=== PATIENT | male | born 1975 | race Caucasian/White ===

== ENCOUNTER 2018-11-06 16:34 | Emergency (ER) | payer MEDICAID ==
[~2018-11-06] VITALS: Ht 182.9 cm; Wt 88.5 kg
--- NOTE | 2018-11-06 17:05 | NUR ---
ED Nurse Note: Patient walked into ED c/o rash or abscess on his face, and rash/itchiness all over his body, patient also reports right hip pain
[2018-11-06 17:41] VITALS: BP 131/90
--- NOTE | 2018-11-06 17:49 | Emergency Room Report ---
History of Present Illness General Chief Complaint: Skin Rash/Abscess Source: Patient Present Illness HPI 43-year-old male presents to the emergency department complaining of 10 out of 10 in severity itchy rash to the face 1 week in addition to now feeling itchiness throughout his body. Patient reports that he has been living in incisional housing areas. Patient denies erythema, fevers or chills. Patient reports several open wounds. He states that he is up-to-date with vaccinations and that he recently received his tetanus vaccination. Patient denies history of immunocompromise. Pt. denies swollen tender lymph nodes. Denies new medications or body washes or creams. Denies swelling of the lips, tongue , throat or airway. Denies wheezing, or shortness of breath. Denies recent travel , recent illness or ill contacts. denies blisters, oral lesions, or sloughing of the skin. Pt. requesting scabies treatment as well. Allergies: Coded Allergies: PENICILLINS (Verified Allergy, Unknown, 11/06/18) Patient History Past Medical History: see triage record Past Surgical History: none Pertinent Family History: none Immunizations: UTD Reviewed Nursing Documentation: PMH: Agreed; PSxH: Agreed Nursing Documentation-PMH Past Medical History: No Stated History Review of Systems All Other Systems: negative except mentioned in HPI Physical Exam Vital Signs Date Time Temp Pulse Resp B/P (MAP) Pulse Ox O2 Delivery O2 Flow Rate FiO2 11/06/18 16:58 98.1 92 19 131/90 98 Room Air Sp02 EP Interpretation: reviewed, normal General Appearance: no apparent distress, alert, GCS 15, non-toxic Head: normocephalic, atraumatic Eyes: bilateral eye normal inspection, bilateral eye PERRL ENT: hearing grossly normal, no angioedema, normal voice, other - nummular plaques in the [place] area, scabbing noted, no erythema, blisters or vessicles Neck: full range of motion Respiratory: chest non-tender, lungs clear, normal breath sounds, no wheezing, speaking full sentences Cardiovascular #1: regular rate, rhythm Musculoskeletal: back normal, gait/station normal, normal range of motion, non- tender Neurologic: alert, oriented x3, responsive, motor strength/tone normal, sensory intact, normal gait, speech normal, grossly normal Psychiatric: judgement/insight normal Skin: normal color, warm/dry, well hydrated, rash Lymphatic: no adenopathy Medical Decision Making PA Attestation Dr. meyers is my supervising Physician whom patient management has been discussed with. Diagnostic Impression: Primary Impression: Rash and other nonspecific skin eruption ER Course 43-year-old male presents to the emergency department complaining of 10 out of 10 in severity itchy rash to the face 1 week in addition to now feeling itchiness throughout his body. Patient reports that he has been living in incisional housing areas. Patient denies erythema, fevers or chills. Patient reports several open wounds. He states that he is up-to-date with vaccinations and that he recently received his tetanus vaccination. Patient denies history of immunocompromise. Pt. denies swollen tender lymph nodes. Denies new medications or body washes or creams. Denies swelling of the lips, tongue , throat or airway. Denies wheezing, or shortness of breath. Denies recent travel , recent illness or ill contacts. denies blisters, oral lesions, or sloughing of the skin. Pt. requesting scabies treatment as well. Ddx considered but are not limited to cellulitis, scabies, shingles, varicella, dermatitis, urticaria, eczema, tinea, viral exanthem, SJS Vital signs: are WNL, pt. is afebrile H&PE are most consistent with Tinea barbae ORDERS: none required at this time, the diagnosis is clinical ED INTERVENTIONS: None required at this time. DISCHARGE: At this time pt. is stable for d/c to home. Will provide printed patient care instructions, and any necessary prescriptions. Care plan and follow up instructions have been discussed with the patient prior to discharge. Last Vital Signs Date Time Temp Pulse Resp B/P (MAP) Pulse Ox O2 Delivery O2 Flow Rate FiO2 11/06/18 17:41 98.1 92 19 131/90 98 Room Air Disposition: HOME, SELF-CARE Condition: Stable Scripts Hydrocortisone (Hydrocortisone Cream 2.5%) Y Cream.appl 1 APPLIC TP BID, #22 GM Prov: Daniella Olsen 11/06/18 Permethrin* (ELIMITE*) 60 Gm Cream..g. 1 APPLIC TOPIC ONCE, #60 GM 0 Refills Apply cream from head to toe; leave on for 8-14 hours before washing off with water; may reapply in 1 week if live mites appear. Prov: Daniella Olsen 11/06/18 Ketoconazole (Ketoconazole) 15 Gm Cream..g. 1 APPLIC TOPIC BID for 14 Days, #15 APPLIC 2 Refills Prov: Daniella Olsen 11/06/18 Patient Instructions: Rash, [id number] Additional Instructions: Take medications as directed. Follow up with a Primary Care Provider in 3-5 days for DERMATOLOGY REFERRAL , even if your symptoms have resolved. --Please review list of primary care clinics, if you do not already have a primary care provider Return sooner to ED if new symptoms occur, or current symptoms become worse. - Please note that this Emergency Department Report was dictated using [employer] sorter technology software, occasionally this can lead to erroneous entry secondary to interpretation by the dictation equipment. Daniella Olsen Nov 06, 2018 17:49
[2018-11-06] MEDS ORDERED: HYDROCORTISONE30 G2 TP (17:54)
[2018-11-06] MEDS ORDERED: PERMETHRIN60 GM TOPIC (17:54)
[2018-11-06] MEDS ORDERED: NIZORAL 2% C1 APPLIC TOPIC (17:54)
--- NOTE | 2018-11-06 18:29 | NUR ---
ED Nurse Note: patient went up to 4E with [facility] for shower. Patient provided with 2 sandwiches and 2 juices, 2 milks. Patient provided with appropriate clothing by [facility].
[2018-11-06] MEDS ORDERED: Hydrocortisone 2.5% Oint 30gm TOPIC ONE (18:45)
--- NOTE | 2018-11-06 19:20 | NUR ---
ED Nurse Note: Called [facility] Hotline and spoke with NADIR, Community Resource Advisor, at this hour(1850) senior care is only accepting walk- ins. There are 3 walk in clinics at this hour, patient provided the list of walk-in shelters. Called each walk in shelters to make sure if they're full or not, none of them picked up (list attached homeless discharge plan checklist) Nadir stated that they may not picking supervisor the phone at this hour. three medication was provided from our pharmacy and given to the patient with education. patient verbalized understanding. patient was provided with a bus tap card patient was provided sandwich, juice, water, and milk patient was provided with clothings/shoes. patient was provided with low cost/free community clinic list so that he can follow up, patient verbalized understanding of following up with PMD. PER PAT Tate note. called PAT Tate and verified.
--- NOTE | 2018-11-06 19:25 | NUR ---
ED Nurse Note: pt d/c per ER Provider, pt community resources by PAT [place] pt vss, ambulatory w/steady gait. all belongings left w/ pt.
[2018-11-06 19:30] VITALS: BP 128/88
[2018-11-06 19:38] VITALS: BP 128/88
== END 2018-11-06 22:04 | disposition home or self-care (01) ==
LOC: EMR 17:36
DX: R21 Rash and other nonspecific skin eruption (principal); Z88.0 Allergy status to penicillin
CPT/HCPCS: 99282